=== PATIENT | male | born 1955 | race Caucasian/White ===

== ENCOUNTER 2020-06-19 15:58 | Outpatient (CLI) | payer OTHER, SELFPAY | END 2020-06-19 15:59 | disposition home or self-care (01) | LOC: ANHCOVIDVC 15:58 | PROVIDERS: PCP Family Medicine | DX: Z23 Encounter for immunization (principal) | CPT/HCPCS: 0001A; 91300 ==

== ENCOUNTER 2020-07-10 15:55 | Outpatient (CLI) | payer OTHER, SELFPAY | END 2020-07-10 15:56 | disposition home or self-care (01) | LOC: ANHCOVIDVC 15:55 | PROVIDERS: PCP Family Medicine | DX: Z23 Encounter for immunization (principal) | CPT/HCPCS: 0002A; 91300 ==

== ENCOUNTER 2022-01-06 09:39 | Outpatient (CLI) | payer MEDICARE, SELFPAY ==
--- NOTE | 2022-01-06 10:22 | ECG_ITS ---
Measurements Intervals [place] Rate: 88 P: 48 UT: 156 QRS: 34 QRSD: 106 T: 20 QT: 364 QTc: 442 Interpretive Statements SINUS RHYTHM NO PREVIOUS ECG AVAILABLE FOR COMPARISON Electronically Signed On 01-06-2022 17:25:30 CDT by Eva Tyler M.D.
[2022-01-06 10:45] LABS: Basophils Percent Auto 0.6 % (0.2-1.2); Eosinophils Absolute Auto 0.1 K/mm3 (0-0.3); Eosinophils Percent Auto 1.2 % (0-4.4); Hematocrit 46.2 % (42.0-52.0); Hemoglobin 15.8 g/dL (14.0-18.0); Immature Granulocyte Absolute 0.02 K/mm3 (0.00-0.031); Immature Granulocyte Percent A 0.3 % (0-0.5); Lymphocytes Absolute Auto 1.02 K/mm3 (0.9-3.2); Mean Corpuscular HGB Conc 34.2 g/dl (32-36); Mean Corpuscular Hemoglobin 31.7 pg (26-34); Mean Corpuscular Volume 92.6 fl (80-100); Mean Platelet Volume 10.1 fl (7.4-10.4); Monocytes Absolute Auto 0.5 K/mm3 (0.1-0.6); Monocytes Percent Auto 6.9 % (2.6-8.5); Neutrophils Absolute Auto 5.2 K/mm3 (1.3-6.7); Platelet Count Result 174 k/mm3 (150-375); Red Blood Count 4.99 M/mm3 (4.6-6.20); White Blood Count 6.8 K/mm3 (4.5-10.0)
[2022-01-06 10:56] LABS: Prothrombin Time 12.9 Seconds (11.1-14.7)
[2022-01-06 10:58] LABS: Partial Thromboplastin Time 28.3 SECONDS (22.3-36.8)
[2022-01-06 11:05] LABS: Alanine Aminotransferase 30 U/L (6-50); Albumin Level 4.3 g/dL (3.5-5.1); Alkaline Phosphatase 53 U/L (38-126); Anion Gap 11 mmol/L (8-16); Aspartate Amino Transferase 31 U/L (17-59); Bilirubin,Total 0.6 mg/dL (0.2-1.3); Blood Urea Nitrogen 13 mg/dL (9-20); Calcium 9.3 mg/dL (8.4-10.2); Carbon Dioxide 28 mmol/L (22-30); Chloride 104 mmol/L (98-107); Estimated Glomerular Filt Rate > 60; Glucose 127 mg/dL (65-110); Potassium 3.8 mmol/L (3.4-5.0); Sodium 143 mmol/L (137-145)
== END 2022-01-06 09:40 | disposition home or self-care (01) ==
LOC: ANHSURGERY 09:44
PROVIDERS: PCP Family Medicine; Visit Provider Urology
DX: Z01.818 Encounter for other preprocedural examination (principal); I10 Essential (primary) hypertension; C61 Malignant neoplasm of prostate
CPT/HCPCS: 36415; 80053; 85025; 85610; 85730; 86850; 86900; 86901; 87086; 93005

== ENCOUNTER 2022-01-18 01:18 | Day surgery (SDC) | payer MEDICARE, SELFPAY ==
--- NOTE | 2022-01-06 09:35 | PC.NURSE ---
PRE-OP INSTRUCTIONS, PLEASE READ CAREFULLY Report to the Outpatient Waiting Room, entrance under the green pavilion located off [facility], at time _0600_ on date _01/18/22_. OR Time: _0730_. PACK A SMALL OVERNIGHT AND LEAVE IN THE CAR Time changes happen often and if your time is changed the preop area will call you the afternoon before. - You and your visitor will be asked to self-screen and do not enter if you have any COVID symptoms. - Only one visitor and NO children visitors are allowed at this time. - A mask is required within the hospital. Patients may have clear liquids (water, carbonated beverages, clear teas, apple juice) until 3 hours prior to surgery (0430 AM) with a maximum of 20 ounces. - No food from midnight until time of surgery Take the following medications with a SIP of water the morning of surgery: _METOPROLOL_ Medications to discontinue per physician _VIT D3 PER DR. RITCHIE'S INSTRUCTIONS_, Date to take last dose Please no deodorant, or body powder the day of surgery. No jewelry (including any body piercings) or valuables the day of surgery, leave them at home. Please take a shower or bath the night before, or the morning of, surgery with an antibacterial soap. Wear comfortable, loose fitting clothing. - Jewelry must be removed prior to entering the operating room. Rings and piercings that are not removed may be cut off. - The hospital will not accept responsibility for valuables. - Please leave all valuables, including medications, at home the day of surgery. If you are going home after surgery, a licensed tank truck driver must drive you home. - NO public transportation without another adult. - We recommend that an adult stay with you for 24 hours following discharge. - We also recommend that you do not drive, make important decision, drink alcoholic beverages, or take any drugs that were not prescribed by your health care provider for at least 24 hours after your discharge time. Follow any additional instructions given to you from your surgeon. If you or anyone in your household have experienced Covid symptoms in the past week, please notify your surgeon or the nurse liaison at the phone number below for possible testing. Instructions given to ____PT and asked if any additional questions and then verbalized understanding. Patient advised to call surgeon office or pre surgery nurse liaison [phone] if any additional questions.
[2022-01-06 10:00] VITALS: BP 160/90; PULSE 96; RESP 20; TEMP 37.1; O2SAT 97; BMI 33.0
[2022-01-15 18:30] VITALS: BP 138/82; PULSE 109; RESP 14; TEMP 36.5; O2SAT 97
--- NOTE | 2022-01-17 13:37 | P.PNAN_ITS ---
Anes - Initial Pre Proc Eval Procedure: Operation Date: 01/18/22 07:30 Proposed Procedures p Robotic Assisted Nerve Sparing Prostatectomy with Possible Pelvic Lymph Node Dissection - Hector Smiley MD Date/Time: 01/17/22 13:37 Surgeon: Hector Smiley MD Pre Op Diagnosis: Prostate Ca Patient Data Age: 66 Gender: M Height: 1.7 m Weight: 95.7 kg Last Vital Signs Temp 37.1 C 01/06/22 10:00 Pulse 96 01/06/22 10:00 Resp 20 01/06/22 10:00 BP 160/90 H 01/06/22 10:00 Pulse Ox 97 01/06/22 10:00 O2 Del Method Room Air 01/06/22 10:00 Allergies Allergy/AdvReac Type Severity Reaction Status Date / Time No Known Allergies Allergy Unknown Verified 01/18/22 06:48 Home Medications Medication Instructions Recorded Confirmed Type atorvastatin 40 mg tablet (Lipitor) 40 mg PO QHS #90 tabs 04/21/21 01/06/22 Rx metoprolol succinate 50 mg 50 mg PO DAILY #90 tabs 08/02/21 01/06/22 Rx tablet,extended release 24 hr cholecalciferol (vitamin D3) 50 50 mcg PO DAILY 09/20/21 01/06/22 History mcg (2,000 unit) tablet Patient hx anesthesia problems: none Family hx anesthesia problems: none Results Review: All pre-operative results and documents have been reviewed as part of the pre- operative evaluation. [facility] Past Medical History Medical History (Updated 01/17/22 @ 13:37 by Heraclio Soto DO) Dyslipidemia Essential (primary) hypertension Hypertension Prostate cancer Vitamin D deficiency Surgical History Surgical History History of carpal tunnel release (~1999) Family History Family History Father Hypertension Social History Social History Smoking status: Never smoker Second hand tobacco smoke exposure: No Alcohol intake: never Substance use: never Substance use type: does not use Living arrangements: with family Gender identity (if verbalized by the patient): Male Spiritual care concerns: No Anes - Eval Final PreProcedure Day of Procedure 01/17/22 13:37 Patient weight: obese Heart: regular rate and rhythm Lungs: clear to auscultation Airway: Mallampati scale class II Neurological: alert and oriented Last oral intake: >/= 8 hours ASA classification: III Emergent: no Anesthetic plan: proceed Anesthesia type and monitoring: general ETT and standard monitoring Results Review: All pre-operative results and documents have been reviewed as part of the pre- operative evaluation. Informed Consent: The patient's anesthetic plan and its attendant risks and benefits were discussed with the patient/family/POA. Questions were solicited and answers provided to the satisfaction of the patient/family/POA.
[2022-01-18] VITALS (17 sets, daily range): BP systolic 104–142; BP diastolic 66–90; PULSE 80–119; RESP 12–20; TEMP 34.2–36.7; O2SAT 89–100; BMI 32.3
[2022-01-18] MEDS: LACTATED RINGERS 1,000 ML 30 ML IV CONT ×2 (06:28→11:22)
--- NOTE | 2022-01-18 07:18 | WPDHPUPDATE1 ---
History and Physical Update Update Date/Time: 01/18/22 07:18 History and Physical has been reviewed, including an updated exam of the patient. There are NO changes in the patient's condition. Risks, benefits, and alternatives have been discussed and questions answered. Patient agrees to proceed with procedure. Proceed with robotic assist nerve sparing prostatectomy with possible PLND
[2022-01-18] MEDS: ceFAZolin 2 GM/D5W 50 ML 2 GM/50 ML BAG IVPB (07:27)
[2022-01-18] MEDS: BUPIVACAINE HCL 0.5% PF 30 ML VIAL INFILTRATE (09:33)
--- NOTE | 2022-01-18 11:00 | P.OP_ITS ---
Procedure Note - Detailed Date of Procedure 01/18/22 Pre-op Diagnosis Prostate Ca Post-op Diagnosis Same Procedure Performed Robotic assisted nerve-sparing prostatectomy with right pelvic lymphadenectomy Surgeon Hector Smiley MD Anesthesia General Description of Procedure Patient was taken to the operative suite correctly identified. Once anesthesia was obtained was placed in low lying dorsal lithotomy position. He was prepped and draped in usual sterile fashion. All pressure points were padded. Sixteen Palestinian Self with 10 cc were placed bladder. A supraumbilical incision was made and carried down to the rectus fascia. Veress needle was inserted the abdomen was insufflated. Camera was placed with the trocar under direct vision. Working ports were placed in appropriate locations. Patient was placed in steep Trendelenburg position and the robot was docked. Patient had some adhesions along the sigmoid colon which were taken down. Posterior approach was then performed. Seminal vesicles were dissected out their entirety. Vas were transected. Plane between the prostate and the rectum was developed. Bladder was then taken down in standard fashion. Space of Retzius was developed bilaterally. Puboprostatic were taken down. Dorsal venous suture was placed using [address] needle. This was secured to the pubic bone. Bladder was then opened with a bladder neck sparing procedure. Posterior bladder neck was taken down. The plane was opened and the prior dissected seminal vesicles were visualized. Bilateral nerve-sparing was then performed. Pedicles were clipped. Dorsal venous complex was transected. Urethra was also transected. Specimen was then placed in Endo-Catch bag. Right pelvic lymph node dissection was performed with the boundaries being the external iliac vein, Jose M's ligament, bifurcation of the vessels, and obturator nerve. Clips were placed proximally distally. This was also placed in the Endo-Catch bag. We then performed a Juan stitch. Bladder neck was reanastomosed to the urethra using V lock suture in a running fashion. There was good approximation mucosa. Sixteen Palestinian Self was placed with 10 cc in the balloon. Bladder was irrigated without any evidence of extravasation. FEDERICO drain was placed through the 3rd working port site. This was secured. All lap count needle count sponge counts were correct. The robot was undocked. Midline incision was extended and the specimen was brought out with the Endo-Catch bag. Rectus fascia was closed using 0 Vicryl in a running fashion. Subcuticular stitches were then placed. We anesthetized the incision with 1% lidocaine. Patient is taken recovery stable condition. Estimated Blood Loss 50 Drains Yes Packing No Pathology Yes Complications No immediate complications Condition Stable Disposition PACU
[2022-01-18] MEDS: fentaNYL CITRATE INJ (*CRX) 100 MCG/2 ML VIAL 25 MCG IV PUSH ×2 (12:00→12:10)
--- NOTE | 2022-01-18 13:07 | ADMGEN ---
This patient, Denny Dobbs, was admitted to [facility] Surgery-2. Patient/family oriented to hospital policies and general routines including ID bracelet, bed and alarms, visiting hours, pain management, procedures, bathroom and other care routines, personal items, smoking policy, room service/diet, and visiting hours. Information on how to activate the Rapid Response Team has been discussed. Patient/Family are encouraged to report perceived risks to care and to ask questions if they do not understand what they are told or what they should do.
[2022-01-18] MEDS: LACTATED RINGERS 1,000 ML 125 ML IV CONT ×2 (13:59→22:09)
[2022-01-18] MEDS: PROPARACAINE HCL 0.5% 15 ML OPHTH SOLN 1 DROP EACH EYE (15:53)
[2022-01-18] MEDS: ATORVASTATIN 40 MG TABLET PO (20:48)
[2022-01-18] MEDS: HYDROcodone/acetaminophen (*CRX) 5-325 MG TABLET 1 TAB PO (20:50)
[2022-01-18] MEDS: DICLOFENAC SODIUM 0.1% OPHTH SOLN 2.5 ML BOTTLE 1 DROP EACH EYE (22:34)
[2022-01-19 02:09] VITALS: BP 137/60; PULSE 117; RESP 18; TEMP 36.7; O2SAT 97
[2022-01-19] MEDS: HYDROcodone/acetaminophen (*CRX) 5-325 MG TABLET 1 TAB PO (03:29)
[2022-01-19 05:30] LABS: Hematocrit 40.1 % (42.0-52.0); Hemoglobin 13.5 g/dL (14.0-18.0)
[2022-01-19 05:39] LABS: Anion Gap 8 mmol/L (8-16); Blood Urea Nitrogen 13 mg/dL (9-20); Calcium 8.1 mg/dL (8.4-10.2); Carbon Dioxide 26 mmol/L (22-30); Chloride 106 mmol/L (98-107); Estimated CRCL calculation 99 ml/min; Estimated Glomerular Filt Rate > 60; Glucose 109 mg/dL (65-110); Potassium 3.5 mmol/L (3.4-5.0); Sodium 140 mmol/L (137-145)
[2022-01-19 06:00] VITALS: BP 114/61; PULSE 95; RESP 16; TEMP 36.2; O2SAT 94
[2022-01-19] MEDS: DICLOFENAC SODIUM 0.1% OPHTH SOLN 2.5 ML BOTTLE 1 DROP EACH EYE ×2 (06:02→13:02)
[2022-01-19] MEDS: LACTATED RINGERS 1,000 ML 125 ML IV CONT (06:04)
--- NOTE | 2022-01-19 07:51 | WPDANESPN ---
Anes - Prog Note Post-Op Date/Time: 01/19/22 07:51 Cardiovascular status: normal Respiratory status: normal Airway patency: baseline Mental status: baseline Post-Op hydration status: normal Vital Signs: Last Vital Signs Temp 36.2 C L 01/19/22 06:00 Pulse 95 01/19/22 06:00 Resp 16 01/19/22 06:00 BP 114/61 01/19/22 06:00 Pulse Ox 94 01/19/22 06:00 O2 Del Method Nasal Cannula 01/18/22 13:57 O2 Flow Rate 2 01/18/22 13:57 Pain Score (VAS): 05/13 I/O: Intake & Output 01/18/22 01/18/22 01/19/22 15:59 23:59 07:59 Intake Total 350 1560 1950 Output Total 70 290 2650 Balance 280 1270 -700 Laboratory Tests 01/19/22 05:10 01/19/22 05:10 01/19/22 01/19/22 05:10 05:10 Hgb 13.5 L Hct 40.1 L Sodium 140 Potassium 3.5 Chloride 106 Carbon Dioxide 26 Anion Gap 8 BUN 13 Creatinine 0.70 Estim Creat Clear Calc 99 Estimated GFR > 60 Glucose 109 Calcium 8.1 L Post-procedural complaints: none Patient Feedback: Patient satisfied with anesthetic care. Other Findings: Patient stated having pain throughout the night, but it is well controlled now.
--- NOTE | 2022-01-19 07:59 | WPDUROPN2 ---
Progress Note: A&P Assessment and Plan (1) Adenocarcinoma of prostate: Code(s): C61 - Malignant neoplasm of prostate Status: Acute Assessment and Plan: Increase activity. Monitor FEDERICO output this morning. Will be re-evaluated later this afternoon for possible discharge home later today. Patient scheduled for catheter cystogram next week with follow-up Subjective Subjective Date/Time Seen: 01/19/22 07:59 Post Op day: 1 (Robotic assisted nerve-sparing prostatectomy with right pelvic lymph node dissection) Principal diagnosis: Adenocarcinoma prostate Interval history: Denny is doing well overall. He has typical mild abdominal discomfort from the distention of gas. Urine is fairly clear at this time. Minimal FEDERICO output of 40 cc last shift. Review of Systems Review of Systems: All systems reviewed & are unremarkable except as noted in HPI and below Exam Const: General: cooperative and comfortable Resp: Effort & Inspection: normal respiratory effort Cardio: Rate: regular rate Rhythm: regular rhythm GI: Inspection: normal to inspection and non-distended GI Palp: Yes Soft to palpation Urinary Catheter: Urinary Catheter: patent and draining and urine clear Objective Data Vital Signs Vital Signs: Vital Signs - 24 hr 01/18/22 11:21 01/18/22 11:37 01/18/22 11:52 Temperature 36.2 C L Pulse Rate 87 87 80 Respiratory Rate 12 17 15 Blood Pressure 113/73 104/68 123/76 Pulse Oximetry 97 98 100 Oxygen Delivery Simple Face Mask Simple Face Mask Simple Face Mask Oxygen Flow Rate 10 10 10 01/18/22 12:07 01/18/22 12:22 01/18/22 12:37 Temperature Pulse Rate 80 104 H 94 Respiratory Rate 13 18 14 Blood Pressure 113/68 112/68 109/71 Pulse Oximetry 99 94 99 Oxygen Delivery Simple Face Mask Room Air Room Air Oxygen Flow Rate 10 01/18/22 12:48 01/18/22 13:05 01/18/22 13:12 Temperature 36.4 C L 36.1 C L Pulse Rate 92 96 Respiratory Rate 13 18 Blood Pressure 107/66 132/78 Pulse Oximetry 98 93 Oxygen Delivery Room Air Room Air Oxygen Flow Rate 01/18/22 13:20 01/18/22 13:50 01/18/22 13:56 Temperature 36.1 C L 36.1 C L Pulse Rate 108 H 88 Respiratory Rate 18 18 Blood Pressure 138/78 121/77 Pulse Oximetry 95 91 89 L Oxygen Delivery Room Air Oxygen Flow Rate 01/18/22 13:57 01/18/22 15:45 01/18/22 18:38 Temperature 36.4 C 36.5 C Pulse Rate 107 H 109 H Respiratory Rate 16 16 Blood Pressure 140/73 138/85 Pulse Oximetry 98 96 99 Oxygen Delivery Nasal Cannula Oxygen Flow Rate 2 01/18/22 18:39 01/18/22 22:14 01/19/22 02:09 Temperature 36.4 C 36.7 C 36.7 C Pulse Rate 119 H 116 H 117 H Respiratory Rate 18 20 18 Blood Pressure 135/86 130/78 137/60 Pulse Oximetry 97 98 97 Oxygen Delivery Oxygen Flow Rate 01/19/22 06:00 Temperature 36.2 C L Pulse Rate 95 Respiratory Rate 16 Blood Pressure 114/61 Pulse Oximetry 94 Oxygen Delivery Oxygen Flow Rate Intake/Output Intake/Output: Intake & Output 01/16/22 01/17/22 01/18/22 01/19/22 23:59 23:59 23:59 23:59 Intake Total 1960 1950 Output Total 360 2650 Balance 1600 -700 Meds/Results Medications: Active Medications Generic Name Dose Route Start Last Admin Trade Name Freq PRN Reason Stop Dose Admin Hydrocodone Bitart/Acetaminophen 1 tab 01/18/22 12:54 01/19/22 03:29 Hydrocodone/Acetaminophen (*Crx) 5-325 Mg Tablet PO 1 tab Q6H PRN Administration Pain Rated 1-3 Hydrocodone Bitart/Acetaminophen 2 tab 01/18/22 12:54 Hydrocodone/Acetaminophen (*Crx) 5-325 Mg Tablet PO Q6H PRN Pain Rated 4-6 Artificial Tears 1 drop 01/18/22 15:15 Artificial Tears Ophth Soln 15 Ml Bottle EACH EYE Q2H PRN Dry Eye(s) Atorvastatin Calcium 40 mg 01/18/22 21:00 01/18/22 20:48 Atorvastatin 40 Mg Tablet PO 40 mg QHS VICTORIANO Administration Diclofenac Sodium 1 drop 01/18/22 22:00 01/19/22 06:02 Diclofenac Sodium 0.1% Ophth Soln 2.5 Ml
[2022-01-19] MEDS: HYDROcodone/acetaminophen (*CRX) 5-325 MG TABLET 2 TAB PO (08:38)
[2022-01-19 08:39] VITALS: PULSE 102
[2022-01-19] MEDS: levoFLOXacin 500 MG TABLET PO (08:39)
[2022-01-19] MEDS: METOPROLOL SUCCINATE EXT REL 50 MG TABCR PO (08:39)
[2022-01-19 08:42] VITALS: BP 143/81; PULSE 101; RESP 14; O2SAT 95
[2022-01-19 10:05] VITALS: BP 129/78; PULSE 102; RESP 16; TEMP 36.1; O2SAT 94
[2022-01-19] MEDS: SIMETHICONE 80 MG TAB.CHEW PO (13:05)
[2022-01-19 14:42] VITALS: BP 135/83; PULSE 105; RESP 16; TEMP 36.6; O2SAT 93
== END 2022-01-19 13:57 | disposition home or self-care (01) ==
LOC: ANHSURGERY 05:59 → ANHSUROVER 12:56 → ANH2MED 15:27
PROVIDERS: PCP Family Medicine; Visit Provider Urology
PROC: 0VT04ZZ Resection of Prostate, Percutaneous Endoscopic Approach (ICD-10-PCS; CPT 55867; principal; 2022-01-18 07:30)
DX: C61 Malignant neoplasm of prostate (principal); I10 Essential (primary) hypertension; E78.5 Hyperlipidemia, unspecified; E55.9 Vitamin D deficiency, unspecified; E66.9 Obesity, unspecified; Z68.32 Body mass index [BMI] 32.0-32.9, adult
CPT/HCPCS: 55866; 38571; S2900; 36415; 80048; 80053; 85014; 85018; 85025; 85610; 85730; 86850; 86900; 86901; 87086; 88309; 93005; A9270; J0690; J1100; J1170; J2250; J2704; J2710; J3010; J7120

== ENCOUNTER 2022-01-26 08:37 | Outpatient (CLI) | payer MEDICARE, SELFPAY ==
--- NOTE | ~2022-01-26 | XR_ITS ---
EXAMINATION: XR cystogram DATE: 01/26/2022 09:04 INDICATION: Prostate cancer status post prostatectomy. TECHNIQUE: Water-soluble contrast was gravity-infused through the patient's Self catheter. Multiple fluoroscopic images were obtained. Fluoroscopy exposure time was 0.3 minutes. The total number of sreekanth ges was 9. COMPARISON: None. FINDINGS: There is no extraluminal leakage of contrast. A filling defect in the anterior bladder is l ikely gas introduced during the procedure. No ureteral reflux. IMPRESSION: 1. No extraluminal leakage of contrast. Reviewed, dictated and finalized at location A.
== END 2022-01-26 08:38 | disposition home or self-care (01) ==
PROVIDERS: PCP Family Medicine; Visit Provider Urology
DX: C61 Malignant neoplasm of prostate (principal)
CPT/HCPCS: 51600; 74430; Q9967

== ENCOUNTER 2023-03-31 10:18 | Outpatient (CLI) | payer MEDICARE, SELFPAY ==
--- NOTE | ~2023-03-31 | US_ITS ---
EXAMINATION: US aorta [facility] DATE: 03/31/2023 11:53 FIRE COORDINATOR INDICATION: History of nicotine dependence. Hypertension. TECHNIQUE: Grayscale, color Doppler, and pulsed Doppler images of the aorta and common iliac arteries were obtained. COMPARISON: None. FINDINGS: The proximal aorta measures 2.7 cm greatest sagittal dimension. The mid aorta measures 2.4 cm greates t sagittal dimension. The distal aorta measures 2.1 cm greatest sagittal dimension. The right common internal iliac artery measures 1.4 cm. The left common iliac artery measures 1.2 cm. IMPRESSION: 1. Normal caliber aorta without aneurysm. Reviewed, dictated and finalized at location A. COORDINATOR
== END 2023-03-31 10:19 | disposition home or self-care (01) ==
PROVIDERS: PCP Family Medicine; Visit Provider Family Medicine
DX: Z87.891 Personal history of nicotine dependence (principal); I10 Essential (primary) hypertension
CPT/HCPCS: 76706

== ENCOUNTER 2023-12-18 08:36 | Outpatient (CLI) | payer MEDICARE, SELFPAY ==
[2023-12-18 18:24] LABS: Hematocrit 47.7 % (42.0-52.0); Hemoglobin 15.3 g/dL (14.0-18.0); Immature Granulocyte Percent A 0.3 % (0-0.5); Lymphocytes Percent Auto 16.1 % (18.3-44.2); Mean Corpuscular HGB Conc 32.1 g/dl (32-36); Mean Corpuscular Hemoglobin 30.7 pg (26-34); Mean Corpuscular Volume 95.6 fl (80-100); Mean Platelet Volume 10.9 fl (7.4-10.4); Neutrophils Percent Auto 72.6 % (45.5-73.1); Platelet Count Result 186 k/mm3 (150-375); Red Blood Count 4.99 M/mm3 (4.6-6.20); Red Cell Distribution Width 13.7 % (11.5-14.5); White Blood Count 7.7 K/mm3 (4.5-10.0)
[2023-12-18 18:25] LABS: Basophils Absolute Auto 0.1 K/mm3 (0.0-0.1); Basophils Percent Auto 0.6 % (0.2-1.2); Eosinophils Absolute Auto 0.2 K/mm3 (0-0.3); Eosinophils Percent Auto 2.1 % (0-4.4); Immature Granulocyte Absolute 0.02 K/mm3 (0.00-0.031); Lymphocytes Absolute Auto 1.24 K/mm3 (0.9-3.2); Monocytes Absolute Auto 0.6 K/mm3 (0.1-0.6); Monocytes Percent Auto 8.3 % (2.6-8.5); Neutrophils Absolute Auto 5.6 K/mm3 (1.3-6.7)
[2023-12-18 18:57] LABS: Alanine Aminotransferase 25 U/L (6-50); Albumin Level 4.2 g/dL (3.5-5.1); Alkaline Phosphatase 77 U/L (38-126); Anion Gap 9 mmol/L (4-12); Aspartate Amino Transferase 54 U/L (17-59); Bilirubin,Total 0.7 mg/dL (0.2-1.3); Blood Urea Nitrogen 13 mg/dL (9-20); Calcium 9.5 mg/dL (8.4-10.2); Carbon Dioxide 28 mmol/L (22-30); Chloride 103 mmol/L (98-107); Cholesterol 184 mg/dL (0-200); Estimated Glomerular Filt Rate > 60; Glucose 111 mg/dL (65-110); HDL Direct 43 mg/dL; Potassium 4.1 mmol/L (3.4-5.0); Sodium 140 mmol/L (137-145); Triglycerides 131 mg/dL (<150)
[2023-12-18 19:08] LABS: LDL Cholesterol Direct 109 mg/dL
[2023-12-18 20:41] LABS: Vitamin D 25 Hydroxy 45.2 ng/mL
== END 2023-12-18 08:37 | disposition home or self-care (01) ==
PROVIDERS: PCP Nurse Practitioner Adult Health; Visit Provider Nurse Practitioner Adult Health
DX: E78.5 Hyperlipidemia, unspecified (principal); E55.9 Vitamin D deficiency, unspecified
CPT/HCPCS: 36415; 80053; 80061; 82306; 85025

== ENCOUNTER 2024-03-19 08:36 | Outpatient (CLI) | payer MEDICARE, SELFPAY | END 2024-03-19 08:37 | disposition home or self-care (01) | LOC: ANHBWCAUD 08:37 | PROVIDERS: PCP Nurse Practitioner Adult Health; Visit Provider Nurse Practitioner Adult Health | DX: H90.3 Sensorineural hearing loss, bilateral (principal); H93.13 Tinnitus, bilateral; H61.23 Impacted cerumen, bilateral | CPT/HCPCS: 92557; 92567 ==

== ENCOUNTER 2024-06-17 07:54 | Outpatient (CLI) | payer MEDICARE, SELFPAY ==
--- OUTSIDE RECORDS SUMMARY | 2024-06-17 08:00 | XMS_ITS | CONTINUITY OF CARE DOCUMENT ---
Author Name rene lópez Address Unknown Organization [facility] Address [address] [place] [address] Phone [phone] Care Team Providers Care Acute Care Registered Nurse Name Role Phone rene lópez Unavailable Unavailable
[2024-06-17 19:42] LABS: Vitamin D 25 Hydroxy 39.5 ng/mL
[2024-06-17 19:50] LABS: Alanine Aminotransferase 36 U/L (6-50); Albumin Level 4.2 g/dL (3.5-5.1); Alkaline Phosphatase 69 U/L (38-126); Anion Gap 7 mmol/L (4-12); Aspartate Amino Transferase 51 U/L (17-59); Bilirubin,Total 0.6 mg/dL (0.2-1.3); Blood Urea Nitrogen 14 mg/dL (9-20); Calcium 9.8 mg/dL (8.4-10.2); Carbon Dioxide 31 mmol/L (22-30); Chloride 103 mmol/L (98-107); Cholesterol 161 mg/dL (0-200); Estimated Glomerular Filt Rate > 60; Glucose 120 mg/dL (65-110); HDL Direct 44 mg/dL; Magnesium 2.2 mg/dL (1.6-2.3); Potassium 4.1 mmol/L (3.4-5.0); Sodium 141 mmol/L (137-145); Triglycerides 125 mg/dL (<150)
[2024-06-17 20:01] LABS: LDL Cholesterol Direct 83 mg/dL
== END 2024-06-17 07:55 | disposition home or self-care (01) ==
PROVIDERS: PCP Nurse Practitioner Adult Health; Visit Provider Nurse Practitioner Adult Health
DX: E55.9 Vitamin D deficiency, unspecified (principal); I10 Essential (primary) hypertension
CPT/HCPCS: 36415; 80053; 80061; 82306; 83735

== ENCOUNTER 2024-06-19 08:37 | Outpatient (CLI) | payer MEDICARE, SELFPAY ==
--- OUTSIDE RECORDS SUMMARY | 2024-06-19 09:06 | XMS_ITS | CONTINUITY OF CARE DOCUMENT ---
Author Name rene lópez Address Unknown Organization [facility] Address [address] [place] [address] Phone [phone] Care Team Providers Care Research Programmer Name Role Phone rene lópez Unavailable Unavailable
[2024-06-19 20:24] LABS: Hemoglobin A1C 5.8 % (<5.7)
== END 2024-06-19 08:38 | disposition home or self-care (01) ==
LOC: ANHBWCLAB 08:38
PROVIDERS: PCP Nurse Practitioner Adult Health; Visit Provider Nurse Practitioner Adult Health
DX: R73.9 Hyperglycemia, unspecified (principal)
CPT/HCPCS: 36415; 83036

== ENCOUNTER 2024-11-26 10:38 | Outpatient (CLI) | payer MEDICARE, SELFPAY ==
[2024-11-26 19:43] LABS: Prostate Specific Antigen < 0.1 ng/mL (< OR = 4.0)
== END 2024-11-26 10:39 | disposition home or self-care (01) ==
PROVIDERS: PCP Nurse Practitioner Adult Health; Visit Provider Urology
DX: C61 Malignant neoplasm of prostate (principal)
CPT/HCPCS: 36415; 84153

== ENCOUNTER 2024-12-19 08:29 | Outpatient (CLI) | payer MEDICARE, SELFPAY ==
[2024-12-19 19:08] LABS: Alanine Aminotransferase 27 U/L (6-50); Albumin Level 4.0 g/dL (3.5-5.1); Alkaline Phosphatase 58 U/L (38-126); Anion Gap 4 mmol/L (4-12); Aspartate Amino Transferase 54 U/L (17-59); Bilirubin,Total 0.9 mg/dL (0.2-1.3); Blood Urea Nitrogen 24 mg/dL (9-20); Calcium 9.0 mg/dL (8.4-10.2); Carbon Dioxide 30 mmol/L (22-30); Chloride 103 mmol/L (98-107); Cholesterol 155 mg/dL (0-200); Estimated Glomerular Filt Rate > 60; Glucose 114 mg/dL (65-110); HDL Direct 41 mg/dL; Potassium 3.8 mmol/L (3.4-5.0); Sodium 137 mmol/L (137-145); Total Protein 7.0 g/dL (6.3-8.2); Triglycerides 113 mg/dL (<150)
== END 2024-12-19 08:30 | disposition home or self-care (01) ==
PROVIDERS: PCP Nurse Practitioner Adult Health; Visit Provider Nurse Practitioner Adult Health
DX: E78.5 Hyperlipidemia, unspecified (principal); E55.9 Vitamin D deficiency, unspecified
CPT/HCPCS: 36415; 80053; 80061; 82306

== ENCOUNTER 2024-12-23 10:44 | Outpatient (CLI) | payer MEDICARE, SELFPAY ==
[2024-12-23 20:31] LABS: Hemoglobin A1C 5.8 % (<5.7)
== END 2024-12-23 10:45 | disposition home or self-care (01) ==
PROVIDERS: Visit Provider Nurse Practitioner Adult Health
DX: R73.9 Hyperglycemia, unspecified (principal)
CPT/HCPCS: 36415; 83036

== ENCOUNTER 2025-01-06 09:48 | Day surgery (SDC) | payer MEDICARE, SELFPAY ==
[2024-12-20 12:34] VITALS: BMI 30.3
[2024-12-24 11:40] VITALS: BMI 30.2
[2025-01-06 10:06] VITALS: BP 129/89; PULSE 93; RESP 18; TEMP 37.3; O2SAT 98
[2025-01-06] MEDS: LACTATED RINGERS 1,000 ML 150 ML IV CONT (10:11)
--- NOTE | 2025-01-06 10:58 | P.PNAN_ITS ---
Anes - Initial Pre Proc Eval Procedure: Operation Date: 01/06/25 11:30 Proposed Procedures p Screening Colonoscopy - Leon Franco MD Date/Time: 01/06/25 10:58 Surgeon: Leon Franco MD Pre Op Diagnosis: Encounter for screening for malignant neoplasm of Patient Data Age: 69 Gender: M Height: 1.75 m Weight: 91.5 kg Last Vital Signs Temp 99.1 F 01/06/25 10:06 Pulse 93 01/06/25 10:06 Resp 18 01/06/25 10:06 BP 129/89 01/06/25 10:06 Pulse Ox 98 01/06/25 10:06 O2 Del Method Room Air 01/06/25 10:06 Allergies Allergy/AdvReac Type Severity Reaction Status Date / Time No Known Allergies Allergy Unknown Verified 01/06/25 10:05 Home Medications ?Medication ?Instructions ?Recorded ?Confirmed ?Type metoprolol succinate 50 mg 50 mg PO DAILY #90 tabs 08/2401/06/25 Rx tablet,extended release 24 hr cholecalciferol (vitamin D3) 50 50 mcg PO DAILY #90 ta bs 04/23/24 01/06/25 Rx mcg (2,000 unit) tablet atorvastatin 40 mg tablet 40 mg PO DAILY #90 tabs 07/0201/06/25 Rx Patient hx anesthesia problems: none Family hx anesthesia problems: none Results Review: All pre-operative results and documents have been reviewed as part of the pre- operative evaluation. [facility] Past Medical History Medical History (Updated 12/23/24 @ 08:42 by Teresa Freed APRN) Prostate cancer Vitamin D deficiency Dyslipidemia Essential (primary) hypertension Elevated PSA Hypertension Surgical History Surgical History Hx of prostatectomy (~01/18/22) History of carpal tunnel release (~1999) Family History Family History Father Hypertension Mother Gastric cancer Emphysema lung Social History Social History Smoking status: Never smoker Second hand tobacco smoke exposure: No Alcohol intake: never Substance use: never Substance use type: does not use Lack of Transportation: No Lack of Food: Never True Current Housing: I Have Housing Concerned About Future Housing: No Difficulty Paying Gas/Electric Bills: No Difficulty Paying for Meds: No Currently Unemployed: No Education: High School Diploma/GED Difficulty w/ Childcare or Family Care: No Living arrangements: with family Gender identity (if verbalized by the patient): Male Spiritual care concerns: No Anes - Eval Final PreProcedure Day of Procedure 01/06/25 10:58 Heart: regular rate and rhythm Lungs: clear to auscultation Airway: Mallampati scale class II Neurological: alert and oriented Last oral intake: >/= 8 hours ASA classification: II Anesthetic plan: proceed Anesthesia type and monitoring: monitored anesthesia care Results Review: All pre-operative results and documents have been reviewed as part of the pre- operative evaluation. Informed Consent: The patient's anesthetic plan and its attendant risks and benefits were discussed with the patient/family/POA. Questions were solicited and answers provided to the satisfaction of the patient/family/POA.
--- NOTE | 2025-01-06 11:25 | PM.IMHP ---
H&P: HPI History of Present Illness Date/Time: 01/06/25 11:25 Chief Complaint: Screening colonoscopy Narrative: This is the patient's second colonoscopy. There are no GI symptoms and there is no family history of colorectal cancer. Review of Systems Review of Systems: All systems reviewed & are unremarkable except as noted in HPI and below [facility] Past Medical History Medical History (Updated 12/23/24 @ 08:42 by Teresa Freed APRN) Prostate cancer Vitamin D deficiency Dyslipidemia Essential (primary) hypertension Elevated PSA Hypertension Surgical History Surgical History Hx of prostatectomy (~01/18/22) History of carpal tunnel release (~1999) Family History Family History Father Hypertension Mother Gastric cancer Emphysema lung Social History Social History Smoking status: Never smoker Second hand tobacco smoke exposure: No Alcohol intake: never Substance use: never Substance use type: does not use Lack of Transportation: No Lack of Food: Never True Current Housing: I Have Housing Concerned About Future Housing: No Difficulty Paying Gas/Electric Bills: No Difficulty Paying for Meds: No Currently Unemployed: No Education: High School Diploma/GED Difficulty w/ Childcare or Family Care: No Living arrangements: with family Gender identity (if verbalized by the patient): Male Spiritual care concerns: No Meds Home Medications and Allergies Home Medications ?Medication ?Instructions ?Recorded ?Confirmed ?Type metoprolol succinate 50 mg 50 mg PO DAILY #90 tabs 03/07/24 01/06/25 Rx tablet,extended release 24 hr cholecalciferol (vitamin D3) 50 50 mcg PO DAILY #90 tabs 04/23/24 01/06/25 Rx mcg (2,000 unit) tablet atorvastatin 40 mg tablet 40 mg PO DAILY #90 tabs 07/18/24 01/06/25 Rx Allergies Allergy/AdvReac Type Severity Reaction Status Date / Time No Known Allergies Allergy Unknown Verified 01/06/25 10:05 Vital Signs Vital Signs - 24 hr 01/06/25 10:06 Temperature 99.1 F Pulse Rate 93 Respiratory Rate 18 Blood Pressure 129/89 Pulse Oximetry 98 Oxygen Delivery Room Air Exam Const: General: cooperative and healthy appearing Resp: Effort & Inspection: normal respiratory effort and able to speak in complete sentences Auscultation: clear to auscultation bilaterally Cardio: Rate: regular rate Rhythm: regular rhythm GI: Inspection: normal to inspection GI Palp: No No hepatosplenomegaly present Auscultation: normal bowel sounds Rectal Exam: deferred Skin: General skin exam: normal color Psych: Appearance: grossly normal Mental Status: mental status grossly normal Assessment and Plan Assessment and plan (1) Screening for colon cancer: Code(s): Z12.11 - Encounter for screening for malignant neoplasm of colon Status: Acute Assessment and Plan: The patient is deemed a good candidate for the procedure. Consent signed. Will proceed.
--- NOTE | 2025-01-06 11:36 | WPDANESPN ---
Anes - Prog Note Post-Op Date/Time: 01/06/25 11:36 Vital Signs: Last Vital Signs Temp 99.1 F 01/06/25 10:06 Pulse 93 01/06/25 10:06 Resp 18 01/06/25 10:06 BP 129/89 01/06/25 10:06 Pulse Ox 98 01/06/25 10:06 O2 Del Method Room Air 01/06/25 10:06 Pain Score (VAS): no Patient Feedback: Patient satisfied with anesthetic care.
[2025-01-06 11:50] VITALS: BP 104/75; PULSE 75; RESP 14; O2SAT 96
[2025-01-06 12:00] VITALS: BP 99/78; PULSE 70; RESP 16; O2SAT 98
[2025-01-06 12:10] VITALS: BP 110/78; PULSE 69; RESP 16; O2SAT 97
== END 2025-01-06 12:13 | disposition home or self-care (01) ==
PROVIDERS: PCP Nurse Practitioner Adult Health; Referring Provider Internal Medicine Gastroenterology; Visit Provider Internal Medicine Gastroenterology
PROC: 0DJD8ZZ Inspection of Lower Intestinal Tract, Via Natural or Artificial Opening Endoscopic (ICD-10-PCS; CPT 45378; principal; 2025-01-06 11:30)
DX: Z12.11 Encounter for screening for malignant neoplasm of colon (principal); K57.30 Diverticulosis of large intestine without perforation or abscess without bleeding; K64.8 Other hemorrhoids
CPT/HCPCS: G0121